=== PATIENT | male | born 1985 | race Caucasian/White ===

== ENCOUNTER 2025-05-10 19:32 | Emergency (ER) | payer BC, SELFPAY ==
--- OUTSIDE RECORDS SUMMARY | 2025-05-10 19:37 | XMS_ITS | Clinical Summary ---
Author Organization [facility] Address [address] [place] [id number] Care Team Providers Care Digital Computer Operator Name Role Phone Tommy Hastings MD Primary Care Provider Mike Forbes Unavailable [phone] Tommy Woodard MD Unavailable [phone] Allergies No known active allergies Medications semaglutide (WEGOVY) 2.4 mg/0.75 mL auto-injector Inject 0.75 mL (2.4 mg total) under the skin every 7 days 9 mL 3 5 Active furosemide (LASIX) 20 mg tablet TAKE 1 TABLET (20 MG TOTAL) BY MOUTH ONE TIME EACH DAY Active NIFEdipine XL 90 mg 24 hr tablet TAKE 1 TABLET (90 MG TOTAL) BY MOUTH 1 (ONE) TIME EACH DAY DO NOT CRUSH, CHEW, OR SPLIT. Active atomoxetine (STRATTERA) 60 mg capsuleIndication s:Attention-Defic it Hyperactivity Disorder TAKE 1 CAPSULE (60 MG TOTAL) BY MOUTH DAILY FOR ADD NOTE HIGHER DOSE 90 capsule 3 5 026 Active escitalopram (LEXAPRO) 20 mg tablet TAKE 1 TABLET BY MOUTH EVERY DAY 90 tablet 1 5 Active nebivoloL (BYSTOLIC) 20 mg tablet TAKE 1 TABLET (20 MG TOTAL) BY MOUTH DAILY THIS REPLACES METOPROLOL 90 tablet 1 5 Active valsartan-hydroch lorothiazide (DIOVAN-HCT) 320-12.5 mg per tablet TAKE 1 TABLET BY MOUTH EVERY DAY 90 tablet 1 5 Active sildenafiL (VIAGRA) 100 mg tablet TAKE 1 TABLET BY MOUTH EVERY DAY NEEDED FOR ERECTILE DYSFUNCTION 8 tablet 11 5 Active Active Problems Problem Noted Date Diagnosed Date Recurrent major depression 03/25/2024 Assessment & Plan (03/31/2025 11:34 AM CDT): NOA (obstructive sleep apnea) 02/07/2024 Assessment & Plan (03/31/2025 11:34 AM CDT): Acute left-sided low back pain with left-sided s ciatica 05/18/2022 DDD (degenerative disc disease), lumbar 05/17/20 Lumbar radiculopathy 03/14/2022 Assessment & Plan (03/31/2025 11:34 AM CDT): Hill-Sachs lesion of left shoulder 03/30/2020 Overview (03/30/2020): Added automatically from request for surgery [id number] Tear of left glenoid labrum 03/18/2020 Hill Sachs deformity, left 03/18/2020 Annual physical exam 10/07/2018 Assessment & Plan (03/31/2025 11:34 AM CDT): Orders: Comprehensive metabolic panel; Future Lipid panel; Future Assessment & Plan (10/07/2018 9:57 AM CDT): Pt is up-to-date on all vaccinations including his Tdap vaccination, influenza vaccination in the recent year and he was encouraged to the follow back up in 1 year for repeat influenza vaccination. Pt has done a fantastic job losing nearly 70 lb over the last 2 years and was encouraged to Cnt. With heart healthy, low fat diet with and continuing exercise regimen to improve overall heart health All past family, social, medical, and surgical history reviewed and updated in EMR. Pt was encouraged to follow back up for next annual CP with labs prior to visit. Seasonal allergic rhinitis due to pollen 019 Assessment & Plan (03/31/2025 11:34 AM CDT): Assessment & Plan (10/07/2018 9:55 AM CDT): Recommended OTC antihistamine such as Claritin or Zyrtec, nasal rinses, and p.r.n. Use of Benadryl at night. Avoidance of allergen exposure including closing windows, dusting fans, and changing filters at home. RTC prn for any further issues Multiple nevi 10/07/2018 Assessment & Plan (10/07/2018 9:56 AM CDT): Appear to be benign with minimal change in last year per Pt. Documentation provided above regarding findings of nevi, and will Cnt. To monitor following up here in 1 year. Discussion of consult taking Dermatology, deferred at this time D/T stability of condition. Tachycardia 08/07/2017 Assessment & Plan (10/07/2018 9:54 AM CDT): Much improved asymptomatic with daily verapamil. Follow-up with any recurrence of palpitations or concerning arrhythmias Assessment & Plan (08/13/2017 9:59 AM TAGMAN): Patient was encouraged to proceed with Holter monitor as ordered. This will be placed today. He will continue on metoprolol 50 mg once daily. New script sent to pharmacy with notation of increased dose from 25 mg daily up to 50 mg daily. Patient will closely follow up here in 2 weeks for repeat evaluation and review of blood pressure and heart rate log. He was encouraged to contact the office in the interim with absolutely any change in, worsening, or non improvement in his condition. Assessment & Plan (08/07/2017 4:21 PM TAGMAN): Bedside EKG sinus tachycardia at 104 beats per minute. Otherwise normal EKG. Patient was instructed to discontinue phentermine. He was given metoprolol XL 25 mg to begin daily. He was sent to the lab for additional diagnostic testing: TSH, free T4, magnesium, CMP, and CBC. He is to return for close follow-up early next week. If his symptoms worsen or he develops chest pain he has been instructed to proceed to the emergency room. This was discussed in detail and he verbalized understanding. Essential hypertension 08/07/2017 Assessment & Plan (03/31/2025 11:34 AM CDT): Assessment & Plan (11/25/2024 1:21 PM CDT): BP Readings from Last 3 Encounters: 11/25/24 120/80 09/14/24 126/90 09/05/24 146/88 Vitals BP 120/80 (BP Location: Left arm, Patient Position: Sitting) Pulse 95 Resp 16 Ht 185.4 cm (6' 0.99) Wt 91.2 kg (201 lb) SpO2 98% BMI 26.52 kg/m Lab Results Component Value Date POTASSIUM 3.4 04/13/2024 At goal Continue diovan-hct, nifedipine, lasix, nebivolol Assessment & Plan (09/14/2024 11:06 AM CDT): Recommend DASH diet, heart-healthy lifestyle, exercise. Discussed the risks of hypertension. Assessment & Plan (02/27/2021 9:57 AM CDT): Recommend DASH diet, heart-healthy lifestyle, exercise. Discussed the risks of hypertension. Assessment & Plan (10/07/2018 9:55 AM CDT): Normotensive. Cnt. Current dosing of Hyzaar, dash diet, and daily 8 exercise to assist with overall BP control Assessment & Plan (08/13/2017 9:58 AM TAGMAN): Blood pressure has improved with the addition of the valsartan/hydrochlorothiazide but remains elevated. I recommended increasing dose of valsartan/hydrochlorothiazide to 320-25 mg once daily. BMP will be repeated when patient returns for follow-up in 2 weeks. He was encouraged to continue to monitor his blood pressure and heart rate outside of the office. He will continue on metoprolol 50 mg once daily in addition to valsartan/hydrochlorothiazide. He verbalized understanding. Assessment & Plan (08/07/2017 4:22 PM TAGMAN): Bedside EKG sinus tachycardia at 104 beats per minute. Otherwise normal EKG. Patient was instructed to discontinue phentermine. He was given metoprolol XL 25 mg to begin daily. He was sent to the lab for additional diagnostic testing: TSH, free T4, magnesium, CMP, and CBC. He is to return for close follow-up early next week. If his symptoms worsen or he develops chest pain he has been instructed to proceed to the emergency room. This was discussed in detail and he verbalized understanding. Temporomandibular joint disorder 10/20/2013 Overview (09/19/2016): TMJ (temporomandibular joint disorder) Resolved Problems Problem Noted Date Diagnosed Date Resolved Date Migraine 12/29/2013 01/26/2020 Overview (09/20/2016): MIGRNE UNSP WO NTRC MGRN Asthma 10/31/2013 03/11/2018 Overview (09/20/2016): ASTHMA NOS Tobacco dependence syndrome 10/31/2013 08/13/2017 Overview (09/21/2016): TOBACCO USE DISORDER Encounters Date Type Department Care Team Description 04/02/2025 Results Follow-Up [facility] Primary Care at [address] [phone] Tommy Hastings MD Lipid panel, Comprehensive metabolic panel, eGFR 03/31/2025 9:00 AM CDT Office Visit [facility] Medical [facility] Primary Care at [address] [place] [phone] Tommy Hastings MD Annual physical exam (Primary Dx); BMI 27.0-27.9,adult; Moderate episode of recurrent major depressive disorder (HCC); Seasonal allergic rhinitis due to pollen; NOA (obstructive sleep apnea); Lumbar radiculopathy; Essential hypertension 03/31/2025 8:25 AM CDT Lab [facility] [address] [place] [address] Annual physical exam from Last 3 Months Immunizations Immunization Administration Dates Next Due Flucelvax Influenza Quad 03/17/2019 Influenza, Quadrivalent, Pricilla l Culture-based MDCK, Preservative Free, Antibiotic Free, Intramuscular 03/17/2019 Influenza, Split 03/30/2010 Influenza, Trivalent, IM (MDV) 03/19/2011 Influenza, Unspecified 03/31/2025(Deferr ed: Patient Refused),03/25/2024(Deferred: Patient Refused),03/14/2022(Deferred: Patient Refused),01/31/2021(Deferred: Patient Refused),03/21/2020(Deferred: Patient Refused),03/17/2020(Deferred: Patient Refused),03/17/2019,04/01/2018(Deferre d: No longer needed) Pfizer SARS-CoV-2 Monovalent Vaccination (12+ Yrs) PURPLE 09/16/2020,08/26/2020 Tdap 04/29/2013 Surgical History Surgery Date Site/Laterality Comments SHOULDER SURGERY ROTATOR CUFF REPAIR Medical History Medical History Date Comments Hx Other Medical seizure/hospita l 04/2014 History of opioid abuse Clean si nce 2013 Hypertension Depression Kidney stone NOA (obstructive sleep apnea) 02/07/2024 Family History Medical History Relation Name Comments Thyroid cancer Brother 2 Cancer -thyro id; Other Brother 3 Alive and well; Heart disease Father Irregular heart beat Father Other Father Alive and well; Other Mother Alive and well; Relation Name Status Comments Brother 1 Alive Brother 2 Brother 3 Father Alive Mother Alive Social History Tobacco Use Types Packs/Day Years Used Date Smoking Tobacco: Every Day Vaping Smokeless Tobacco: Never Tobacco Cessation:Ready to Q uit: No; Counseling Given: Yes Comments:Smoking History Packs/day: 1 Packs Alcohol Use Standard Drinks/Week Comments Yes 6 (1 standard drink = 0.6 oz pur e alcohol) occasional AUDIT-C Answer Date Recorded Q1: How often do you have a drink containing alc ohol? 2-3 times a week 11/25/2024 Q2: How many drinks containi ng alcohol do you have on a typical day when you are drinking? 1 or 2 11/25/2024 Q3: How often do you have si x or more drinks on one occasion? Never 11/25/2024 PHQ-2 Answer Date Recorded PHQ-2 Total Score (If total score is 3 or more points, staff should administer the PHQ-9) 0 03/31/2025 Personal Safety Answer Date Recorded Have you ever been in or are you currently in a harmful physical or emotional relationship or is someone making you feel afraid or unsafe? Denies 10/24/2023 Sex and Gender Information Value Date Recorded Sex Assigned at Not on file Legal Sex Male 1:42 PM TAGMAN Gender Identity Not on file Sexual Orientation Not on file Last Filed Vital Signs Vital Sign Reading Time Taken Comments Blood Pressure 118/80 03/31/2025 9:16 AM CDT Pulse 80 03/31/2025 9:16 AM CDT Temperature 36.8 C (98.2 F) 03/31/2025 9:16 AM CDT Respiratory Rate 16 03/31/2025 9:16 AM CDT Oxygen Saturation 98% 03/31/2025 9:16 AM CDT Inhaled Oxygen Concentration - - Weight 92.1 kg (203 lb) 03/31/2025 9:16 AM CDT Height 182.9 cm (6') 03/31/2025 9:16 AM CDT Body Mass Index 27.53 03/31/2025 9:16 AM CDT Plan of Treatment Health Maintenance Due Date Last Done Comments Hepatitis C Screening 1983 Varicella Vaccines (1 of 2 - 13+ 2-dose series) 02/15/1996 Hepatitis B Screening 2001 Pneumococcal vaccine <65 (1 of 2 - PCV) 2002 HPV Vaccines (1 - 3-dose SCDM series) 2010 Influenza Vaccine (#1) 2025 9, 03/17/2019, 03/17/2019, Additional history exists Postponed from 02/15/2025 (Patient declined, but will receive in the future) DTaP/Tdap/Td Vaccine (2 - Td or Tdap) 01/22/2026 04/29/2013 Postponed from 04/29/2023 (Insurance / Financial) Covid-19 Vaccine ( - season) 2026 09/16/2020, 08/26/2020 Postponed from 02/15/2025 (Patient declined, but will receive in the future) Depression Screening 03/31/2026 03/31/2025, 11/25/2024, 09/14/2024, Additional history exists Regular Well Visit/Exam 18-64 03/31/2026 03/31/2025, 03/25/2024, 03/20/2023, Additional history exists Medical Devices Implanted Type Area Securities Sales Associate Device Identifier Shelf Expiration Date Model / Serial / Lot [employer] [id number] Pushlock 2.9mm 12.5mm Cannulated Eyelet Handle Sampling Theory Teacher Short - [id number] Implanted:Qty: 1 on 04/05/2020 by Alfa Fontana MD at [facility] Left: Shoulder [employer] 03/16/2021 [id number] / / [id number] Depuy Mitek [id number] Healix Advance Br Orthocord 4.5mm 3 [place] Suture Sterile Latex Free - [id number] Implanted:Qty: 1 on 04/05/2020 by Alfa Fontana MD at [facility] Left: Shoulder [employer]uy Mitek 04/16/2022 [id number] / / [id number] Procedures Procedure Name Priority Date/Time Associated Diagnosis Comments EGFR Routine 03/31/2025 8:32 AM CDT Annual physical exam COMPREHENSIVE METABOLIC PANEL Routine 03/31/2025 8:32 AM CDT Annual physical exam LIPID PANEL Routine 03/31/2025 8:32 AM CDT Annual physical exam from Last 3 Months Results * eGFR (03/31/2025 8:32 AM CDT) eGFR >90 >=60 mL/min/1. 73 m2 Comment: Interpretive Data Reference Interval Normal >/= 90 mL/min/1.73m2 Mildly decreased* 60 - 89 mL/min/1.73m2 Mildly to moderately decreased 45 - 59 mL/min/1.73m2 Moderately to severely decreased 30 - 44 mL/min/1.73m2 Severely decreased 15 - 29 mL/min/1.73m2 Kidney Failure < 15 mL/min/1.73m2 *Relative to young adult level Estimated glomerular filtration rate is determined by the 2020 CKD-EPI equation recommended by the National Kidney Foundation (A Unifying Approach to GFR Estimation: Recommendations of the NKF-ASK Task Force on Reassessing the Inclusion of Race in Diagnosing Kidney Disease, JASN 2020). The CKD-EPI equation should not be used for patients with unstable renal function and has not been validated in children and those over 70. Current interpretive data was last reviewed 2021. Testing performed by: [facility], [address] [place] [address]., [address] Blood 03/31/2025 8:32 AM CDT 03/31/2025 2:03 PM CDT us Tommy Hastings MD LAB BLOOD ORDERABLES Fi nal Result [facility] ([place]) 1 [facility] Department of Laboratories [place], [place] [id number] * (ABNORMAL) Lipid panel (03/31/2025 8:32 AM CDT) Cholesterol 216(H) 30 - 199 mg/dL Comment: Interpretive Data Ages < or = 19 years Acceptable: <170 mg/dL Borderline high: 170-199 mg/dL High: >or= 200 mg/dL Ages > or = 20 years Desirable: <200 mg/dL Borderline high: 200-239 mg/dL High: >or= 240 mg/dL Literature References: 1. Expert Panel on Integrated Guidelines for Cardiovascular Health and Risk Reduction in Children and Adolescents. Pediatrics 2011;128:S213 2. NCEP Expert Panel. Circulation 2004;110:227 Current Interpretive Data was last revised on 2018. Testing performed by: [facility], [address] [place] [address]., [address] Triglycerides 81 <=149 mg/dL [facility] ([place]FR[place]) Comment: Interpretive Data Ages < or = 9 years Acceptable: <75 mg/dL Borderline high: 75-99 mg/dL High: >or= 100 mg/dL Ages 10 to 20 years Acceptable: <90 mg/dL Borderline high: 90-129 mg/dL High: >or= 130 mg/dL Ages > or = 20 years Desirable: <150 mg/dL Borderline high: 150-199 mg/dL High: 200-499 mg/dL Very high: >or= 499 mg/dL Literature References: 1. Expert Panel on Integrated Guidelines for Cardiovascular Health and Risk Reduction in Children and Adolescents. Pediatrics 2011;128:S213 2. NCEP Expert Panel. Circulation 2004;110:227 Current Interpretive Data was last revised on 2018. Testing performed by: [facility], [address] [place] [address]., [address] HDL 53 >=40 mg/dL [facility] ([place]) Comment: Interpretive Data Ages < or = 19 years Acceptable: >45 mg/dL Borderline low: 40-45 mg/dL Low: <40 mg/dL Ages > or = 20 years Desirable: >or= 60 mg/dL Low: <40 mg/dL Literature References: 1. Expert Panel on Integrated Guidelines for Cardiovascular Health and Risk Reduction in Children and Adolescents. Pediatrics 2011;128:S213 2. NCEP Expert Panel. Circulation 2004;110:227 Current Interpretive Data was last revised on 2018. Testing performed by: [address] [address] LDL, calculated 149(H) <=129 mg/dL [facility] ([place]) Comment: Interpretive Data Ages < or = 19 years Acceptable: <110 mg/dL Borderline high: 110-129 mg/dL High: >or= 130 mg/dL Ages > or = 20 years Optimal: <100 mg/dL Near optimal: 100-129 mg/dL Borderline high: 130-159 mg/dL High: >160 mg/dL Calculated using the Evaristo LDL-C estimating equation. This equation was implemented on 2024. Prior to this date LDL-C was estimated using the Friedewald equation. Literature References: 1. Expert Panel on Integrated Guidelines for Cardiovascular Health and Risk Reduction in Children and Adolescents. Pediatrics 2011;128:S213 2. NCEP Expert Panel. Circulation 2004;110:227 3. Evaristo Muñoz et al. SHY Cardiol. 2020 October 15;5(5):540-548. doi: 10.1001/jamacardio.2020.0013 Current Interpretive Data was last revised on 2024. Testing performed by: [facility], [address] [place] [address]., [address] Non-HDL Cholesterol 163 mg/dL [facility] ([place]FR[place]) Comment: Interpretive Data Ages < or = 19 years Acceptable: <120 mg/dL Borderline high: 120-144 mg/dL High: >145 mg/dL Ages > or = 20 years When triglycerides are >200 mg/dL, Non-HDL cholesterol is a secondary target of therapy with treatment goals that are 30 mg/dL greater than the LDL cholesterol target. Literature References: 1. Expert Panel on Integrated Guidelines for Cardiovascular Health and Risk Reduction in Children and Adolescents. Pediatrics 2011;128:S213 2. NCEP Expert Panel. Circulation 2004;110:227 Current Interpretive Data was last revised on 2018. Testing performed by: [address] [address] Chol/HDL ratio 4 JUAN MANUELNE Chiqui SERRA ([place]) Comment:Testing performed by : [address] [address] Blood 03/31/2025 8:32 AM CDT 03/31/2025 1:52 PM CDT Narrative [facility] ([place]) - 03/31/2025 2:29 PM CDT Has the patient been fasting for 8 hours or more?->Yes Tommy Hastings MD LAB BLOOD ORDERABLES Fi nal Result [facility] ([place]) 1 [facility] Department [place] [address] * Comprehensive metabolic panel (03/31/2025 8:32 AM CDT) Sodium 143 135 - 145 mmol/L Comment:Testing performed by : [address] [address] Potassium, pl 3.6 3.3 - 4.9 mmol/L [facility] ([place]) Comment:Testing performed by : [address] [address] Chloride 106 97 - 110 mmol/L [facility] ([place]) Comment:Testing performed by : [address] [address] CO2 26 22 - 32 mmol/L [facility] ([place]) Comment:Testing performed by : [address], [address] Anion gap 11 2 - 15 mmol/L [facility] ([place]) Comment:Testing performed by : [address] [address] BUN 18 6 - 25 mg/dL [facility] ([place]) Comment:Testing performed by : [address] [address] Creatinine 0.97 0.80 - 1.30 mg/dL [facility] ([place]) Comment:Testing performed by : [address], [address] Glucose 92 70 - 199 mg/dL [facility] ([place]) Comment: Interpretive Data Fasting glucose >/= 126 mg/dl is diagnostic for diabetes. Fasting is defined as no caloric intake for at least 8 hours. Fasting glucose between 100 mg/dl to 125 mg/dl is diagnostic of prediabetes. In a patient with classic symptoms of hyperglycemia or hyperglycemic crisis, a random glucose >/= 200 mg/dl is diagnostic for diabetes. In the absence of unequivocal hyperglycemia, results should be confirmed by repeat testing. The classification and Diagnosis of Diabetes Diabetes Care 202; 46: S19-S40. Current interpretive data was last revised 2022. Testing performed by: [address], [address] Calcium 9.6 8.5 - 10.3 mg/dL [facility] ([place]) Comment:Testing performed by : [address] [address] Bilirubin, total 0.6 0.1 - 1.2 mg/dL [facility] ([place]) Comment:Testing performed by : [address], [address] Protein, pl 7.3 6.5 - 8.5 g/dL [facility] ([place]) Comment:Testing performed by : [address], [address] Albumin 4.5 3.5 - 5.0 g/dL [facility] ([place]) Comment:Testing performed by : [address], [address] Alk phos 43 40 - 130 Units/L [facility] ([place]) Comment:Testing performed by : [address], [address] ALT 14 7 - 55 Units/L [facility] ([place]) Comment:Testing performed by : [facility], [address] [place] [address]., [address] AST 29 10 - 50 Units/L [facility] ([place]) Comment:Testing performed by : [facility], [address] [place] [address]., [address] Blood 03/31/2025 8:32 AM CDT 03/31/2025 1:52 PM CDT Narrative [facility] ([place]) - 03/31/2025 2:29 PM CDT Has the patient fasted?->Yes us Tommy Hastings MD LAB BLOOD ORDERABLES Fi nal Result [facility] ([place]) 1 [facility] Department [place] [address] from Last 3 Months Insurance [employer] K12 OOS [facility] CHOICE PLUS [employer] K12 OOS Care Teams Digital Computer Operator Relationship Specialty Start Date End Date Tommy Hastings MD PCP - General 09/14/16 Mike Forbes PA [address] [place] [address] [place] [address] Physician Patient Case Manager Orthopedic Surgery 04/05/20 Tommy Woodard MD [address] [place] [address] [place] [address] Anesthesiologist Pain Management 05/29/22
--- OUTSIDE RECORDS SUMMARY | 2025-05-10 19:37 | XMS_ITS | Clinical Summary ---
Author Organization [facility] Address [address] [place] [address] Phone Care Team Providers Care Grain Trimmer Name Role Phone Tommy Hastings MD Primary Care Provider Allergies No known active allergies Medications valsartan-hydro CHLOROthiazide (DIOVAN-HCT) 160-12.5 MG Tablet 9 Active verapamil (CALAN SR; ISOPTIN SR) 180 MG Tablet Controlled Release 9 Active methylPREDNISol one (MEDROL DOSPACK) 4 MG Tablet Therapy Pack Follow instructions on pack, take with food Give one pack 1 Dose Pack 0 Active Additional Information Patient not taking.Reported on 12/21/2021 albuterol 108 (90 Base) MCG/ACT Aerosol Solution take 2 Puffs by inhalation every 4 hours as needed for Cough. 8.5 g 0 Active promethazine-de xtromethorphan (PROMETHAZINE-D M) 6.25-15 MG/5ML Syrup Take 5 mL by mouth every 4 hours as needed for Cough. 240 mL 0 Active Additional Information Patient not taking.Reported on 12/21/2021 escitalopram (LEXAPRO) 10 MG Tablet Take 10 mg by mouth daily. 2 Active HYDROcodone-nettie taminophen (NORCO) 5-325 MG TabletIndicatio ns:Closed fracture of one rib of right side, initial encounter Take 1 Tablet by mouth every 4 hours as needed for Moderate or more severe pain. 12 Tablet 2 Active Active Problems No known active problems Social History Tobacco Use Types Packs/Day Years Used Date Smoking Tobacco: Former Smokeless Tobacco: Never Alcohol Use Standard Drinks/Week Comments Not Currently 0 (1 standard drink = 0.6 oz pur e alcohol) Sex and Gender Information Value Date Recorded Sex Assigned at Not on file Legal Sex Male 7:58 PM CDT Gender Identity Not on file Sexual Orientation Not on file Last Filed Vital Signs Vital Sign Reading Time Taken Comments Blood Pressure 160/98 12/21/2021 9:57 AM CDT Pulse 94 12/21/2021 9:57 AM CDT Temperature 36.2 C (97.2 F) 12/21/2021 9:57 AM CDT Respiratory Rate 18 12/21/2021 9:57 AM CDT Oxygen Saturation 98% 12/21/2021 9:57 AM CDT Inhaled Oxygen Concentration - - Weight - - Height - - Body Mass Index - - Plan of Treatment Health Maintenance Due Date Last Done Comments Hepatitis C Virus (HCV) Screening 1983 Varicella Immunization (1 of 2 - 13+ 2-dose series) 02/15/1996 Hepatitis B Immunization (1 of 3 - 19+ 3-dose series) 2002 Human Papillomavirus (HPV) Immunization (1 - 3-dose SCDM series) 2010 Influenza Immunization (#1) 02/15/202506/2018, 03/19/2011 SARS-COV-2 Immunization ( season) 2025 09/16/2020, 08/26/2020 Respiratory Syncytial Virus (RSV) Immunization (Adult) (1 - 1-dose 75+ series) 2058 DTaP/Tdap/Td Immunization Discontinued 04/29/2013 TdaP Immunization Completed 04/29/2013 Meningococcal Immunization (ACWY) Aged Out No longer eligible based on patient's age to complete this topic Pneumococcal Immunization Combined Aged Out No longer eligible based on patient's age to complete this topic Rotavirus Immunization Aged Out No lo nger eligible based on patient's age to complete this topic Care Teams Grain Trimmer Relationship Specialty Start Date End Date Tommy Hastings MD [address] [place] [address] [address] [place] [id number] PCP - General Internal Medicine 07/22/19
--- OUTSIDE RECORDS SUMMARY | 2025-05-10 19:37 | XMS_ITS | Encounter Summary ---
Author Organization [facility] Address [address] [place] [address] Phone Care Team Providers Care Communications Strategist Name Role Phone Tommy Hastings MD Primary Care Provider Mike Forbes Unavailable [phone] Tommy Woodard MD Unavailable [phone] Encounter Details Date Type Department Care Team (Late st Contact Info) Description 08/07/2017 Orders Only [facility] Provider, MD [address] [phone] Social History Tobacco Use Types Packs/Day Years Used Date Smoking Tobacco: Former Smokeless Tobacco: Never Comments:Smoking History Pac ks/day: 1 Packs Alcohol Use Standard Drinks/Week Comments Yes 6 (1 standard drink = 0.6 oz pur e alcohol) Sex and Gender Information Value Date Recorded Sex Assigned at Not on file Legal Sex Male 1:42 PM CHANGE AGENT Gender Identity Not on file Sexual Orientation Not on file documented as of this encounter Functional Status * In the past year, patient experienced: Question Answer Date of Assessment Author One or more falls in the last year No 2017 3:52 PM CHANGE AGENT Sony Ochoa MA * BP Location Answer Date of Assessment Author Left arm 08/07/2017 3:48 PM CHANGE AGENT Daniele Ochoa MA * Question Answer Date of Assessment Author MAP (mmHg) 113 08/08/2017 4:30 PM CHANGE AGENT Bernardo Nicole RN * BP Location Answer Date of Assessment Author Left arm 08/07/2017 3:48 PM CHANGE AGENT Daniele Ochoa MA documented as of this encounter Plan of Treatment Not on file documented as of this encounter Procedures Procedure Name Priority Date/Time Associated Diagnosis Comments DISCHARGE LABORATORY CUMULATIVE REPORT 08/07/2017 12:00 AM CHANGE AGENT documented in this encounter Results * DISCHARGE LABORATORY CUMULATIVE REPORT (08/07/2017 12:00 AM CHANGE AGENT) Narrative 08/07/2017 12:00 AM CHANGE AGENT Ordered by an unspecified provider. us Historical Provider LAB BLOOD ORDERABLES Lilly l Result documented in this encounter Visit Diagnoses Not on filedocumented in this encounter Additional Health Concerns Infection Onset Date Last Indicated Resolved Time COVID: Suspected 02/11/2021 02/11/2021 02/11/2021 12:02 PM CDT COVID: Suspected 03/06/2021 03/06/2021 03/06/2021 2:46 PM CDT COVID: Suspected 06/16/2021 06/16/2021 06/16/2021 8:49 AM CHANGE AGENT COVID19 06/16/2021 06/16/2021 06/30/2021 3:05 AM CHANGE AGENT COVID: Suspected 02/01/2024 02/01/2024 02/01/2024 2:23 PM CDT COVID19 02/01/2024 02/01/2024 02/11/2024 3:05 AM CDT COVID: Recovered Comment:Added based on recent COVID infection. 02/11/2024 02/12/2024 05/11/2024 3:[address] documented as of this encounter Care Teams Communications Strategist Relationship Specialty Start Date End Date Tommy Hastings MD PCP - General 09/14/16 Mike Forbes PA [address] [place] [address] [place] [address] Physician It Administrative Assistant Orthopedic Surgery 04/05/20 Tommy Woodard MD [address] [place] [address] [place] [address] Anesthesiologist Pain Management 05/29/22 documented as of this encounter
--- OUTSIDE RECORDS SUMMARY | 2025-05-10 19:37 | XMS_ITS | Encounter Summary ---
Author Organization [facility] Address [address] [place] [address] Care Team Providers Care Cinema Operator Name Role Phone Tommy Hastings MD Primary Care Provider Mike Forbes Unavailable Tommy Woodard MD Unavailable [phone] Reason for Visit * Reason Onset Date Comments Test Results 04/02/2025 Encounter Details Date Type Department Care Team (Late st Contact Info) Description 04/02/2025 Results Follow-Up [facility] Primary Care at [address] [place] [address] Tommy Hastings MD [address] [place], [place] [address] [place] [address] Lipid panel, Comprehensive metabolic panel, eGFR Social History Tobacco Use Types Packs/Day Years Used Date Smoking Tobacco: Every Day Vaping Smokeless Tobacco: Never Comments:Smoking History Pac ks/day: [...] on file Legal Sex 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 Gender Identity Not on file Sexual Orientation Not on file documented as of this encounter Miscellaneous Notes * Telephone Encounter - Priya Garcia MA - 04/02/2025 3:14 PM CDT Patient notified via my chart documented in this encounter Plan of Treatment Not on file documented as of this encounter Visit Diagnoses Not on filedocumented in this encounter Care Teams Cinema Operator Relationship Specialty Start Date End Date Tommy Hastings MD PCP - General 09/14/16 Mike Forbes PA [address] [facility] [address] [place] [address] Physician Stock Worker Orthopedic Surgery 04/05/20 Tommy Woodard MD [address] [facility] [address] [place] [address] Anesthesiologist Pain Management 05/29/22 documented as of this encounter
--- OUTSIDE RECORDS SUMMARY | 2025-05-10 19:37 | XMS_ITS | Encounter Summary ---
Author Organization [facility] Address [address] [place] [address] Phone Care Team Providers Care Corridor Redevelopment Manager Name Role Phone Tommy Hastings MD Primary Care Provider Mike Forbes Unavailable [phone] Tommy Woodard MD Unavailable [phone] Encounter Details Date Type Department Care Team (Late st Contact Info) Description 08/27/2017 Orders Only [facility] Provider, MD [address] [phone] Social History Tobacco Use Types Packs/Day Years Used Date Smoking Tobacco: Former Smokeless Tobacco: Never Comments:Smoking History Pac ks/day: 1 Packs Alcohol Use Standard Drinks/Week Comments Yes 6 (1 standard drink = 0.6 oz pur e alcohol) Sex and Gender Information Value Date Recorded Sex Assigned at Not on file 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 Gender Identity Not on file Sexual Orientation Not on file documented as of this encounter Functional Status * In the past year, patient experienced: Question Answer Date of Assessment Author One or more falls in the last year No 2017 10:33 AM Emmy Vargas * BP Location Answer Date of Assessment Author Left arm 08/27/2017 10:30 AM Emmy Vargas * BP Location Answer Date of Assessment Author Left arm 08/27/2017 10:30 AM Emmy Vargas documented as of this encounter Plan of Treatment Not on file documented as of this encounter Procedures Procedure Name Priority Date/Time Associated Diagnosis Comments DISCHARGE LABORATORY CUMULATIVE REPORT 08/27/2017 12:00 AM CDT documented in this encounter Results * DISCHARGE LABORATORY CUMULATIVE REPORT (08/27/2017 12:00 AM CDT) Narrative 08/27/2017 12:00 AM CDT Ordered by an unspecified provider. us Historical Provider LAB BLOOD ORDERABLES Lilly l Result documented in this encounter Visit Diagnoses Not on filedocumented in this encounter Additional Health Concerns Infection Onset Date Last Indicated Resolved Time COVID: Suspected 02/11/2021 02/11/2021 02/11/2021 12:02 PM CDT COVID: Suspected 03/06/2021 03/06/2021 03/06/2021 2:46 PM CDT COVID: Suspected 06/16/2021 06/16/2021 06/16/2021 8:49 AM LIQUOR BRIDGE OPERATOR COVID19 06/16/2021 06/16/2021 06/30/2021 3:05 AM LIQUOR BRIDGE OPERATOR COVID: Suspected 02/01/2024 02/01/2024 02/01/2024 2:23 PM CDT COVID19 02/01/2024 02/01/2024 02/11/2024 3:05 AM CDT COVID: Recovered Comment:Added based on recent COVID infection. 02/11/2024 02/12/2024 05/11/2024 3:[address] documented as of this encounter Care Teams Corridor Redevelopment Manager Relationship Specialty Start Date End Date Tommy Hastings MD PCP - General 09/14/16 Mike Forbes PA [address] [facility] [address] [place] [address] Physician Tongue Trimmer Orthopedic Surgery 04/05/20 Tommy Woodard MD [address] [facility] [address] [place] [address] Anesthesiologist Pain Management 05/29/22 documented as of this encounter
[2025-05-10 19:41] VITALS: BP 143/79; PULSE 97; RESP 20; TEMP 37.8; O2SAT 98
[2025-05-10 19:52] LABS: EDSTREPNEGPOS1 Negative (Negative)
--- NOTE | 2025-05-10 19:54 | ED_ITS ---
HPI - URI/Sore Throat General Chief Complaint: Upper Respiratory Infection Stated Complaint: sore throat/cough/headache/fever Time Seen by Provider: 05/10/25 19:45 Source: patient and RN notes reviewed Mode of arrival: ambulatory Limitations: no limitations History of Present Illness HPI Narrative: 40-year-old male patient presents Express Care complaining of upper respiratory symptoms for approximately 1 week. Patient reports cough, congestion, drainage, fevers, sweats, chills, sore throat. Patient says symptoms are not getting much better. Reports symptoms are getting worse. Patient denies any body aches, any other upper respiratory symptoms, chest pain, difficulty breathing, wheezing, nausea, vomiting, diarrhea, abdominal pain, any other symptoms. Patient has been taking Motrin to help with symptoms. Patient reports a history of high blood pressure. Related Data Home Medications ?Medication ?Instructions ?Recorded ?Confirmed ?Last Taken ?Type atomoxetine 60 mg capsule mg PO 05/10/25 Unknown Hist ory escitalopram oxalate 20 mg tablet mg 05/10/25 Unknown History furosemide 20 mg tablet mg 05/10/25 Unknown History nebivolol 20 mg tablet mg 05/10/25 Unknown History nifedipine 90 mg tablet,extended mg PO 05/10/25 Unkno wn History release 24 hr semaglutide (weight loss) 2.4 mg subcut 05/10/25 Unkn own History mg/0.75 mL subcutaneous pen injector (Wegovy) sildenafil 100 mg tablet mg 05/10/25 Unknown History valsartan 320 tablet 05/10/25 Unknown His tory mg-hydrochlorothiazide 12.5 mg tablet Allergies Allergy/AdvReac Type Severity Reaction Status Date / Time No Known Allergies Allergy Verified 05/10/25 19:41 Review of Systems Review of Systems: CONSTITUTIONAL: Positive for fevers, chills, sweats. Denies body aches. EYES: Denies visual changes, redness, or discharge. ENT: Positive for rhinorrhea, congestion, sore throat. Negative for otalgia. CARDIOVASCULAR: Denies chest pain, palpitations, or edema. RESPIRATORY: Positive for cough. Negative for dyspnea or wheezing. GASTROINTESTINAL: Denies abdominal pain, nausea, vomiting, or diarrhea. GENITOURINARY: Denies dysuria or hematuria. SKIN: Denies rash or itching. MUSCULOSKELETAL: Denies back pain, joint pain, or myalgia. NEUROLOGIC: Denies headache, numbness, or weakness. PSYCHIATRIC: Denies anxiety or depression. All other systems reviewed are negative, except as documented in HPI. PMFSH Social History Social History Smoking status: Former smoker Comments At the time of my signature, I reviewed and agree with the nursing past medical, surgical, social, and family history. There is no relevant family history pertinent to the patient complaint. Exam Narrative: GENERAL: This is a well-nourished, well-developed adult, in no apparent distress. They are non ill-appearing, nontoxic appearing. HEAD: normocephalic, atraumatic. EYES: Sclera clear/white. Vision is grossly intact. Conjunctiva normal bilaterally. Extraocular movements intact. EARS: External ears normal, auditory canals clear and without drainage, TMs without erythema or perforation. Hearing grossly intact. NOSE: External nose normal with no obvious nasal discharge, nasal turbinates erythematous, no rhinorrhea. THROAT: Mucous membranes moist, posterior pharynx erythematous without exudate. Uvula is midline. Postnasal drip present. NECK: Neck supple, tender mild cervical lymphadenopathy, now masses or thyromegaly. CARDIOVASCULAR: Regular rate and rhythm without murmurs, gallops, or rubs. RESPIRATORY: Clear to auscultation. Breath sounds equal bilaterally. No wheezes, rales, or rhonchi. SKIN: warm, Dry, intact with no suspicious lesions or rash, good texture and turgor. NEURO: awake, alert, and oriented to person, place and time. There were no obvious focal neurologic abnormalities. EXTREMITIES: No joint tenderness, effusion, or edema noted. BACK: Nontender without deformity. Course Course Emergency Course: Portions of this record may have been created with voice recognition software Level of Care: Express Care Visit Vital Signs Vital signs: Vital Signs Temperature 100.0 F H 05/10/25 19:41 Pulse Rate 97 05/10/25 19:41 Respiratory Rate 20 05/10/25 19:41 Blood Pressure 143/79 H 05/10/25 19:41 Pulse Oximetry 98 05/10/25 19:41 Oxygen Delivery Room Air 05/10/25 19:41 Temperature 100.0 F H 05/10/25 19:41 Pulse Rate 97 05/10/25 19:41 Respiratory Rate 20 11/24/25 19:41 Blood Pressure 143/79 H 05/10/25 19:41 Pulse Oximetry 98 05/10/25 19:41 Oxygen Delivery Room Air 05/10/25 19:41 MDM - URI/Sore Throat MDM Narrative Medical decision making narrative: Rapid COVID, flu, strep were negative. Given length of symptoms worsening symptoms patient likely has a bacterial sinusitis. Treat him with Augmentin. Will also give patient benzonatate tablets for cough. Discussed physical exam findings. Advised supportive measures and signs/symptoms to go to the ER. Pt is appropriate for outpt treatment and f/u. Differential Diagnosis Differential diagnosis: Likely upper respiratory infection, sinusitis, viral infection and pharyngitis Lab Data Attestation: I reviewed the patient's lab results. Labs: Lab Results 05/10/25 Range/Units 19:50 POC Grp A Strep Screen Negative (Negative) Discharge Plan Discharge Clinical Impression: Sinusitis Qualifiers: Sinusitis location: unspecified location Chronicity: acute Recurrence: non- recurrent Qualified Code(s): J01.90 - Acute sinusitis, unspecified Patient Disposition: Home Condition: Stable Instructions: Antibiotic Form, Sinusitis (ED) Additional Instructions: Your COVID, flu, strep were negative today. A throat culture be sent off it is positive for strep you will be contacted. Take the antibiotics as directed and complete the course even if you start to feel better. You may use a Neti pot saline rinse 3 times a day with lukewarm distilled water Continue to take Tylenol or Motrin as needed for pain or fevers. Follow instructions on the bottle. Take benzonatate tablets as needed for cough. Use a humidifier or vaporizer at night. Drink plenty of water. 8-10 glasses per day. Use flonase 2 times per day for 5 days then as needed Take mucinex 2 times per day and be sure to take with 8oz of water. Follow up with Primary provider in 3-5 days Please go to the ER if he develops any difficulty breathing, chest pain, vomiting, worsening symptoms, or any other concerns Patient Language: Vietnamese Prescriptions: New benzonatate 200 mg capsule 200 mg PO BID PRN (Reason: cough) Qty: 20 0RF amoxicillin-pot clavulanate 875-125 mg tablet 1 tablet PO Q12H 7 Days Qty: 14 0RF No Action sildenafil 100 mg tablet nifedipine 90 mg tablet extended release 24hr PO furosemide 20 mg tablet escitalopram oxalate 20 mg tablet atomoxetine 60 mg capsule PO valsartan-hydrochlorothiazide 320-12.5 mg tablet nebivolol 20 mg tablet Wegovy 2.4 mg/0.75 mL pen injector SUBCUT Follow-up/Referrals: Darling,Tommy Lazo MD [Primary Care Provider] Time of Disposition: 19:52
[2025-05-10 19:56] LABS: EDCOVIDSCREEN Negative (Negative); EDINFLUASCREEN Negative (Negative); EDINFLUBSCREEN Negative (Negative)
== END 2025-05-10 19:57 | disposition home or self-care (01) ==
PROVIDERS: PCP Internal Medicine
DX: J01.90 Acute sinusitis, unspecified (principal); Z20.822 Contact with and (suspected) exposure to COVID-19; I10 Essential (primary) hypertension; Z87.891 Personal history of nicotine dependence
CPT/HCPCS: 87081; 87426; 87804; 87880; 99203; G0463